=== PATIENT | male | born 1945 | race Caucasian/White ===

== ENCOUNTER 2021-03-12 13:54 | Outpatient (CLI) | payer MEDICARE, SELFPAY | END 2021-03-12 13:55 | disposition home or self-care (01) | LOC: CHSLAB 14:21 | PROVIDERS: PCP Family Medicine; Visit Provider Specialist | DX: C43.59 Malignant melanoma of other part of trunk (principal); C43.62 Malignant melanoma of left upper limb, including shoulder; C44.321 Squamous cell carcinoma of skin of nose | CPT/HCPCS: 88305; 88342 ==

== ENCOUNTER 2022-05-01 13:21 | Outpatient (CLI) | payer MEDICARE, SELFPAY ==
--- NOTE | ~2022-05-01 | PE_ITS ---
EXAMINATION: PET skull to mid thigh DATE: 05/01/2022 15:28 INDICATION: Multiple nodules of lung. TECHNIQUE: Blood glucose level was 131 mg/dL. 10.227 mCi of 18-fluorodeoxyglucose (18-FDG) was admini stered i.v. Low dose computed tomography (CT) images were acquired from the base of the brain to the proximal thighs for attenuation correction and anatomic localization. Automated exposure control was employed. Dose-length product (DLP) was 807 mGy-cm. Positron emission tomography (PET) images were ac quired in the same distribution. COMPARISON: None FINDINGS: Head/neck: There is increased activity in the oral cavity, major salivary glands, and glottis without abnormal CT correlate, likely physiologic. There are no pathologically enlarged lymph nodes. Chest: There is mild emphysema. There is mucous plugging in the lower lobes. There are mild atelectas is bilaterally. No pleural effusion. Cardiomegaly is noted. There are surgical changes of the proxima l aorta. There are coronary artery calcifications. No pericardial effusion. There is a small sliding hiatal hernia. There is mild mediastinal lymphadenopathy with increased activity. For example, a 1.9 x 1.5 cm right paratracheal node demonstrates maximum SUV of 4.0. There is increased activity in bone marrow without abnormal CT correlate. Abdomen/pelvis/proximal thighs: The liver, gallbladder, spleen, pancreas, adrenal glands, and kidneys are normal. The prostate is moderately enlarged. There are no dilated loops of bowel. There is a lef t inguinal hernia containing fat. There are no pathologically enlarged lymph nodes. There is no free intraperitoneal fluid. There is increased activity in gluteal muscles bilaterally without abnormal CT correlate, likely physiologic. There is increased activity in bone marrow without abnormal CT correl ate. There is moderate lumbar spondylosis. IMPRESSION: 1. Mild mediastinal lymphadenopathy with increased activity, likely reactive. 2. Increased activity in bone marrow without abnormal CT correlate, likely bone marrow stimulation. Reviewed, dictated and finalized at location A. [facility]
[2022-05-01 14:01] LABS: Glucose Point of Care 131 mg/dl (65-105)
== END 2022-05-01 13:22 | disposition home or self-care (01) ==
PROVIDERS: PCP Family Medicine; Visit Provider Nurse Practitioner
DX: R91.8 Other nonspecific abnormal finding of lung field (principal); R59.0 Localized enlarged lymph nodes
CPT/HCPCS: 78815; A9552